=== PATIENT | female | born 1940 | race Caucasian/White ===

== ENCOUNTER 2021-03-02 14:52 | Inpatient (IN) | payer MEDICARE ==
[2021-03-02] MEDS ORDERED: Acetaminophen 325 MG TAB PO PRN (20:11)
[2021-03-02] MEDS ORDERED: Ondansetron PF 4 MG/2 ML Vial IVP PRN (20:11)
[2021-03-02] MEDS ORDERED: Ondansetron ODT 4 MG TAB PO PRN (20:11)
[2021-03-02] MEDS ORDERED: Acetaminophen 650 MG Suppository PR PRN (20:11)
[2021-03-02] MEDS ORDERED: Simvastatin 20 MG TAB PO SCH (21:00)
[2021-03-02 21:10] VITALS: BMI 26.6
[2021-03-02] MEDS ORDERED: Niacin 500 MG TAB PO SCH (21:15)
[2021-03-02] MEDS: Potassium Chloride 20 MEQ in Lactated Ringer's 1,000 ML IV SCH (21:26)
[2021-03-02] MEDS: Famotidine 20 MG TAB PO SCH (21:27)
[2021-03-02] MEDS: Carvedilol 3.125 MG TAB PO SCH (21:27)
[2021-03-02] MEDS: Amlodipine 5 MG TAB PO SCH (21:27)
[2021-03-02] MEDS ORDERED: Piperacillin/Tazobactam 3.375 GM in Sodium Chloride 0.9% 100 ML IVPB SCH (22:30)
[2021-03-02 22:36] LABS: Magnesium 1.5 mg/dL (1.6-2.6)
[2021-03-02] MEDS ORDERED: Magnesium 2 GM/50 ML 2 GM in Premix Bag 1 BAG IVPB SCH (23:00)
[2021-03-02] MEDS ORDERED: Simvastatin 10 MG TAB PO SCH (23:30)
[2021-03-03] MEDS: Piperacillin/Tazobactam 3.375 GM in Sodium Chloride 0.9% 100 ML IVPB SCH ×2 (03:37→12:41)
[2021-03-03 06:15] LABS: #Basophils 0.1 thou/uL (0.0-0.2); #Eosinphils 0.1 thou/uL (0.0-0.7); #Lymphocytes 1.6 thou/uL (1.20-3.40); #Monocytes 0.4 thou/uL (0.11-0.59); #Neutrophils 6.6 thou/uL (1.40-6.50); %Basophils 0.6 % (0.0-1.0); %Eosinophils 0.8 % (0.0-10.0); %Lymphocytes 18.3 % (21.0-51.0); %Monocytes 4.9 % (0.0-10.0); %Neutrophils 75.5 % (42.0-75.0); Hemoglobin 12.9 g/dL (12.0-16.0); Mean Corpuscular Hemoglobin 31.6 pg (27.0-31.0); Mean Corpuscular Volume 92.9 fL (78.0-98.0); Mean Platelet Volume 6.5 fL (7.4-10.4); Platelet Count 185 thou/uL (130-400); RBC Distribution Width 12.3 % (11.5-14.5); Red Blood Cell (RBC) Count 4.09 mill/uL (4.20-5.40); White Blood Cell (WBC) Count 8.7 thou/uL (4.8-10.8)
[2021-03-03 06:40] LABS: ALT (SGPT) 11 U/L (8-55); AST (SGOT) 15 U/L (5-34); Albumin 3.3 g/dL (3.4-4.8); Alkaline Phosphatase 47 U/L (40-110); Anion Gap 10 mmol/L (10-20); BUN (Urea Nitrogen) 12 mg/dL (9.8-20.1); Bilirubin, Total 0.9 mg/dL (0.2-1.2); Calc. Creatinine Clearance 66 mL/min (70-130); Calcium 9.5 mg/dL (7.8-10.44); Carbon Dioxide 26 mmol/L (23-31); Chloride 104 mmol/L (98-107); Globulin 2.4 g/dL (2.4-3.5); Glucose 116 mg/dL (83-110); Potassium 3.1 mmol/L (3.5-5.1); Protein, Total 5.7 g/dL (5.8-8.1); Sodium 137 mmol/L (136-145)
[2021-03-03] MEDS: metFORMIN 500 MG TAB PO SCH (08:04)
[2021-03-03] MEDS: Ascorbic Acid 500 mg Chewable Tablet PO SCH (08:04)
[2021-03-03] MEDS: Hydrochlorothiazide 25 MG TAB PO SCH (08:05)
[2021-03-03] MEDS: Carvedilol 3.125 MG TAB PO SCH ×2 (08:05→20:36)
[2021-03-03] MEDS: Fish Oil 1,000 MG CAP PO SCH (08:05)
[2021-03-03] MEDS: Multivitamin W/ Minerals 1 TAB PO SCH (08:05)
[2021-03-03] MEDS: Folic Acid 1 MG TAB PO SCH (08:05)
[2021-03-03] MEDS ORDERED: Aspirin 81 mg Enteric Coated Tablet PO SCH (09:00)
[2021-03-03] MEDS: Potassium Chloride 20 MEQ in Lactated Ringer's 1,000 ML IV SCH (11:36)
[2021-03-03] MEDS ORDERED: Morphine 4 MG/ML VIAL SLOW IVP PRN (11:42)
[2021-03-03] MEDS ORDERED: Ketorolac Tromethamine 30 MG/ML VIAL IVP SCH (11:45)
[2021-03-03] MEDS ORDERED: Acetaminophen 500 MG TAB PO SCH (11:45)
[2021-03-03] MEDS ORDERED: Acetaminophen 500 MG TAB PO PRN ×2 (11:45→18:00)
[2021-03-03] MEDS ORDERED: Fentanyl 100 MCG/2 ML VIAL ONE ×2 (15:32→17:38)
[2021-03-03] MEDS ORDERED: Iothalamate Meglumine 60% 50 ML VIAL FS ONE (15:33)
[2021-03-03] MEDS ORDERED: Bupivacaine 0.25% HCL 30 ML VIAL ONE (15:33)
[2021-03-03] MEDS ORDERED: Lidocaine 1% w/Epinephrine 1:100K 20 ML VIAL ONE (15:33)
[2021-03-03] MEDS ORDERED: PROPOFOL 200 MG/20 ML VIAL ONE (16:08)
[2021-03-03] MEDS ORDERED: Ondansetron PF 4 MG/2 ML Vial ONE (16:08)
[2021-03-03] MEDS ORDERED: Rocuronium Bromide 10 MG/ML (10ML VIAL) ONE (16:08)
[2021-03-03] MEDS ORDERED: Glycopyrrolate 0.2 MG/ML 5 ML SYRINGE ONE (16:08)
[2021-03-03] MEDS ORDERED: Lidocaine 1% PF 5 ML VIAL ONE (16:08)
[2021-03-03] MEDS ORDERED: traMADol HCl 50 MG TAB PO PRN (16:12)
[2021-03-03] MEDS ORDERED: Ibuprofen 600 MG TAB PO PRN (16:12)
[2021-03-03 16:40] LABS: SARS-CoV-2 PCR by NAA Not Detected (NotDetected)
[2021-03-03] MEDS ORDERED: SUGAMMADEX SODIUM 200 MG/2 ML VIAL ONE (16:52)
[2021-03-03] MEDS ORDERED: Ketorolac Tromethamine 30 MG/ML VIAL IVP PRN (18:00)
[2021-03-03] MEDS: Amlodipine 5 MG TAB PO SCH (20:35)
[2021-03-03] MEDS: Famotidine 20 MG TAB PO SCH (20:36)
[2021-03-03] MEDS ORDERED: Simvastatin 10 MG TAB PO SCH (21:00)
[2021-03-03] MEDS ORDERED: Niacin 500 MG TAB PO SCH (21:00)
[2021-03-04] MEDS ORDERED: Furosemide 100 MG/10 ML VIAL SLOW IVP SCH (08:30)
[2021-03-04] MEDS ORDERED: Potassium Chloride 20 MEQ TAB PO SCH (08:45)
[2021-03-04] MEDS ORDERED: Azithromycin 200 MG/5 ML Oral Suspension PO SCH (09:00)
[2021-03-04] MEDS ORDERED: Azithromycin 250 MG TAB PO SCH (09:00)
[2021-03-04] MEDS: Carvedilol 3.125 MG TAB PO SCH (09:22)
[2021-03-04] MEDS: Ascorbic Acid 500 mg Chewable Tablet PO SCH (09:23)
[2021-03-04] MEDS: Multivitamin W/ Minerals 1 TAB PO SCH (09:23)
[2021-03-04] MEDS: Fish Oil 1,000 MG CAP PO SCH (09:23)
[2021-03-04] MEDS: Folic Acid 1 MG TAB PO SCH (09:23)
[2021-03-04] MEDS: Hydrochlorothiazide 25 MG TAB PO SCH (09:23)
[2021-03-04] MEDS: metFORMIN 500 MG TAB PO SCH (09:23)
[2021-03-04 09:49] LABS: Anion Gap 12 mmol/L (10-20); BUN (Urea Nitrogen) 18 mg/dL (9.8-20.1); Calc. Creatinine Clearance 67 mL/min (70-130); Calcium 9.6 mg/dL (7.8-10.44); Carbon Dioxide 25 mmol/L (23-31); Chloride 104 mmol/L (98-107); Glucose 81 mg/dL (83-110); Potassium 3.4 mmol/L (3.5-5.1); Sodium 138 mmol/L (136-145)
[2021-03-04 10:49] VITALS: TEMP 98.9
[2021-03-04 10:50] VITALS: BP 126/71
[2021-03-04 11:29] LABS: Magnesium 1.7 mg/dL (1.6-2.6)
== END 2021-03-04 16:00 | disposition home or self-care (01) | DRG 418 ==
LOC: MSONC 15:16 → INTOOBSV 15:16 → OBSVTOIN 03-03 15:49
PROVIDERS: ADMIT Family Medicine; ATTEND Family Medicine
PROC: 0FT44ZZ Resection of Gallbladder, Percutaneous Endoscopic Approach (ICD-10-PCS; principal; 2021-03-03)
PROC: BF101ZZ Fluoroscopy of Bile Ducts using Low Osmolar Contrast (ICD-10-PCS; 2021-03-03)
DX: K80.00 Calculus of gallbladder with acute cholecystitis without obstruction (principal); A04.5 Campylobacter enteritis; I48.21 Permanent atrial fibrillation; E78.5 Hyperlipidemia, unspecified; I25.10 Atherosclerotic heart disease of native coronary artery without angina pectoris; E11.9 Type 2 diabetes mellitus without complications; I10 Essential (primary) hypertension; E86.0 Dehydration; E87.6 Hypokalemia; Z66 Do not resuscitate; Z20.822 Contact with and (suspected) exposure to COVID-19; Z79.899 Other long term (current) drug therapy; Z79.82 Long term (current) use of aspirin; Z95.5 Presence of coronary angioplasty implant and graft; I25.2 Old myocardial infarction; Z90.49 Acquired absence of other specified parts of digestive tract
CPT/HCPCS: 36415; 47532; 76705; 80048; 80053; 83630; 83735; 84145; 85025; 86140; 87045; 87046; 87077; 87081; 87186; 87324; 87427; 87449; 93005; 93010; 96365; 96367; 96375; 96376; C1713; G0378; J1610; J1885; J1956; J2405; J2543; J2704; J3010; J3475; J3480; J3490; J7120; Q9961-U8; S0020; U0003; U0005

== ENCOUNTER 2024-03-27 09:48 | Emergency (ER) | payer MEDICARE ==
[~2024-03-27 09:48] MED LIST: Iopamidol-370 76% 500 ML MDV (1 ML CHARGE) ONE
[2024-03-27 11:11] LABS: #Basophils Less than 0.03 10x3/uL (0.0-0.2); #Eosinophils Less than 0.03 10x3/uL (0.0-0.7); %Basophils 0.1 % (0.0-1.0); %Eosinophils 0.1 % (0.0-10.0); %Lymphocytes 6.9 % (21.0-51.0); %Monocytes 4.2 % (0.0-10.0); %Neutrophils 88.3 % (42.0-75.0); Hematocrit 45.5 % (36.0-47.0); Mean Corpuscular Hemoglobin 29.8 pg (27.0-31.0); Mean Corpuscular Volume 90.5 fL (78.0-98.0); Platelet Count 286 10x3/uL (130-400); RBC Distribution Width 14.6 % (11.5-14.5); Red Blood Cell (RBC) Count 5.03 mill/uL (4.20-5.40)
[2024-03-27 11:45] LABS: Bacteria/HPF None Seen HPF (None Seen); Bilirubin Negative (Negative); Blood, Urine Negative (Negative); CAUTI Indications for Culture Alt mental st,lethar; Clarity Clear (Clear); Glucose, Urine (Dipstick) 70 mg/dL (Negative); Ketone, Urine Negative (Negative); Leukocyte Negative Leu/uL (Negative); Nitrite Negative (Negative); Protein, Urine (Dipstick) 10 mg/dL (Neg-Trace); RBC/HPF 0-3 HPF (0-3); Squamous Epithelial 0-3 HPF (0-3); Urobilinogen Normal mg/dL (Less than 2)
[2024-03-27 11:45] LABS: ALT (SGPT) 14 U/L (8-55); AST (SGOT) 39 U/L (5-34); Albumin 4.4 g/dL (3.4-4.8); Alkaline Phosphatase 65 U/L (40-110); Anion Gap 20 mmol/L (10-20); BUN (Urea Nitrogen) 19 mg/dL (9.8-20.1); Bilirubin, Total 1.3 mg/dL (0.2-1.2); Calc. Creatinine Clearance 0 mL/min (70-130); Calcium 10.3 mg/dL (7.8-10.44); Carbon Dioxide 17 mmol/L (23-31); Chloride 105 mmol/L (98-107); Estimated GFR 86; Globulin 3.6 g/dL (2.4-3.5); Glucose 107 mg/dL (83-110); Potassium 3.9 mmol/L (3.5-5.1); Sodium 138 mmol/L (136-145); Troponin I 0.055 ng/mL (< 0.028)
[2024-03-27 11:46] LABS: Urine Culture Reflex No No
[2024-03-27 11:59] LABS: Prothrombin Time 12.7 sec (12.0-14.7)
[2024-03-27 12:01] LABS: PTT 25.8 sec (22.9-36.1)
[2024-03-27] MEDS ORDERED: Aspirin 300 MG Suppository ONE (12:35)
== END 2024-03-27 22:53 | disposition short-term general hospital (02) ==
LOC: ERS 09:48
DX: I63.412 Cerebral infarction due to embolism of left middle cerebral artery (principal); G81.91 Hemiplegia, unspecified affecting right dominant side; R41.82 Altered mental status, unspecified; R29.725 NIHSS score 25; I25.10 Atherosclerotic heart disease of native coronary artery without angina pectoris; I25.2 Old myocardial infarction; I10 Essential (primary) hypertension
CPT/HCPCS: 0042T; 70450; 70496; 70498; 71045; 80053; 81001; 84484; 85025; 85610; 85730; 93005; 94760; 36415; Q9967

== ENCOUNTER 2025-03-05 10:00 | Inpatient (IN) | payer MEDICARE ==
[2025-03-08] MEDS ORDERED: Heparin 10,000 UNITS/ 10 ML VIAL ONE (08:21)
[2025-03-08] MEDS ORDERED: fentaNYL PF 100 MCG/2 ML SYRINGE ONE (08:48)
[2025-03-08] MEDS ORDERED: Lidocaine 1% PF 5 ML VIAL ONE (08:49)
[2025-03-08] MEDS ORDERED: PROPOFOL 200 MG/20 ML VIAL ONE (09:35)
[2025-03-08] MEDS ORDERED: Rocuronium Bromide 10 MG/ML (10ML VIAL) ONE (09:35)
[2025-03-08] MEDS ORDERED: PHENYLEPHRINE-NS 100 MCG/ML 10 ML SYRINGE ONE (09:35)
[2025-03-08] MEDS ORDERED: Ondansetron PF 4 MG/2 ML Vial ONE (10:10)
[2025-03-08] MEDS ORDERED: SUGAMMADEX SODIUM 200 MG/2 ML VIAL ONE ×2 (10:26→10:30)
[2025-03-08] MEDS ORDERED: Acetaminophen 325 MG TAB PO PRN ×2 (11:03)
[2025-03-08] MEDS ORDERED: hydrALAZINE 20 MG/ML VIAL SLOW IVP PRN (11:03)
[2025-03-08] MEDS ORDERED: Phenylephrine 40 MG/NS 250 ML 250 ML IVPB PRN (11:03)
[2025-03-08] MEDS ORDERED: Nitroglycerin 50 MG/250 ML BOT 250 ML IVPB PRN (11:03)
[2025-03-08] MEDS ORDERED: Ondansetron PF 4 MG/2 ML Vial IVP PRN (11:03)
[2025-03-08] MEDS ORDERED: Nitroglycerin 50 MG/250 ML BOT 250 ML ONE (11:17)
[2025-03-08] MEDS ORDERED: Ketotifen 0.035% Ophth Soln 5 ml Bottle EA EYE PRN (12:18)
[2025-03-08 14:43] VITALS: BMI 20.5
[2025-03-08] MEDS: Carvedilol 6.25 MG TAB PO SCH (16:57)
[2025-03-08 16:58] VITALS: BP 134/60
[2025-03-08] MEDS: Losartan 25 MG TAB PO SCH (20:00)
[2025-03-09 08:19] VITALS: TEMP 98.3
[2025-03-09] MEDS: Folic Acid 1 MG TAB PO SCH (08:59)
[2025-03-09] MEDS: Dapagliflozin Propanediol 10 MG TAB PO SCH (08:59)
[2025-03-09] MEDS: Multivit, Therapeutic 1 TAB PO SCH (08:59)
[2025-03-09] MEDS ORDERED: Non-Formulary Item 1 EACH (Multivitamin With Minerals [Multiple Vitamin] 1 TABLET Tablet) PO SCH (09:00)
[2025-03-09] MEDS ORDERED: Apixaban 2.5 MG TAB PO SCH (21:00)
== END 2025-03-09 11:40 | disposition home or self-care (01) | DRG 35 ==
LOC: SURG A 03-08 08:04 → CCU 03-08 12:11
PROVIDERS: ADMIT Thoracic Surgery (Cardiothoracic Vascular Surgery); ATTEND Thoracic Surgery (Cardiothoracic Vascular Surgery)
PROC: 037J3DZ Dilation of Left Common Carotid Artery with Intraluminal Device, Percutaneous Approach (ICD-10-PCS; principal; 2025-03-08)
DX: I65.22 Occlusion and stenosis of left carotid artery (principal); I48.20 Chronic atrial fibrillation, unspecified; I10 Essential (primary) hypertension; Z79.899 Other long term (current) drug therapy; E78.5 Hyperlipidemia, unspecified; Z79.01 Long term (current) use of anticoagulants; E11.9 Type 2 diabetes mellitus without complications; Z86.73 Personal history of transient ischemic attack (TIA), and cerebral infarction without residual deficits
CPT/HCPCS: 80048; 85025; 93005; 93010; 94640; C1725; C1769; C1876; C1884; J0169; J1100; J1644; J2405; J2704; J2720; J7030

== ENCOUNTER 2025-03-05 10:13 | Outpatient (CLI) | payer MEDICARE ==
[2025-03-05 11:20] LABS: #Basophils 0.03 10x3/uL (0.0-0.2); #Eosinophils 0.13 10x3/uL (0.0-0.7); #Monocytes 0.33 10x3/uL (0.11-0.59); #Neutrophils 4.10 10x3/uL (1.40-6.50); %Basophils 0.5 % (0.0-1.0); %Eosinophils 2.0 % (0.0-10.0); %Lymphocytes 30.4 % (21.0-51.0); %Monocytes 5.0 % (0.0-10.0); %Neutrophils 61.8 % (42.0-75.0); Hematocrit 41.4 % (36.0-47.0); Hemoglobin 12.8 g/dL (12.0-16.0); Mean Corpuscular Hemoglobin 29.2 pg (27.0-31.0); Mean Corpuscular Volume 94.5 fL (78.0-98.0); Platelet Count 206 10x3/uL (130-400); Red Blood Cell (RBC) Count 4.38 mill/uL (4.20-5.40); White Blood Cell (WBC) Count 6.62 10x3/uL (4.8-10.8)
[2025-03-05 11:34] LABS: Anion Gap 9 mmol/L (10-20); BUN (Urea Nitrogen) 28 mg/dL (9.8-20.1); Calc. Creatinine Clearance 0 mL/min (70-130); Calcium 10.2 mg/dL (7.8-10.44); Carbon Dioxide 29 mmol/L (23-31); Chloride 111 mmol/L (98-107); Glucose 115 mg/dL (83-110); Potassium 3.7 mmol/L (3.5-5.1); Sodium 145 mmol/L (136-145)
== END 2025-03-05 10:14 | disposition home or self-care (01) ==
LOC: LABBT 10:13
PROVIDERS: ATTEND Thoracic Surgery (Cardiothoracic Vascular Surgery)
DX: Z01.818 Encounter for other preprocedural examination (principal); I65.22 Occlusion and stenosis of left carotid artery
CPT/HCPCS: 80048; 85025; 93005; 93010